=== PATIENT | female | born 1950 | race Caucasian/White ===

== ENCOUNTER 2022-08-28 12:18 | Emergency (ER) | payer OTHER, MEDICARE ==
[2022-08-28 13:30] LABS: #Lymphocytes 2.6 thou/uL (1.20-3.40); #Monocytes 1.2 thou/uL (0.11-0.59); #Neutrophils 6.6 thou/uL (1.40-6.50); %Basophils 0.3 % (0.0-1.0); %Eosinophils 0.3 % (0.0-10.0); %Lymphocytes 24.8 % (21.0-51.0); %Monocytes 11.4 % (0.0-10.0); %Neutrophils 63.3 % (42.0-75.0); Mean Corpuscular HGB CONC 32.4 g/dL (32.0-36.0); Mean Corpuscular Hemoglobin 30.6 pg (27.0-31.0); Mean Corpuscular Volume 94.5 fl (78.0-98.0); Mean Platelet Volume 8.8 fL (7.4-10.4); Platelet Count 264 thou/uL (130-400); RBC Distribution Width 12.4 % (11.5-14.5); Red Blood Cell (RBC) Count 4.91 mill/uL (4.20-5.40); White Blood Cell (WBC) Count 10.4 thou/uL (4.8-10.8)
[2022-08-28] MEDS ORDERED: FENTANYL 50 MCG/ML 1 ML VIAL ONE ×2 (14:05→16:39)
[2022-08-28] MEDS ORDERED: Ondansetron PF 4 MG/2 ML Vial ONE (15:38)
[2022-08-28 15:48] LABS: ALT (SGPT) 14 U/L (8-55); AST (SGOT) 22 U/L (5-34); Albumin 4.3 g/dL (3.4-4.8); Alkaline Phosphatase 80 U/L (40-110); Anion Gap 15 mmol/L (10-20); BUN (Urea Nitrogen) 9 mg/dL (9.8-20.1); Bilirubin, Total 0.7 mg/dL (0.2-1.2); Calc. Creatinine Clearance 0 mL/min (70-130); Calcium 9.7 mg/dL (7.8-10.44); Carbon Dioxide 24 mmol/L (23-31); Chloride 101 mmol/L (98-107); Estimated GFR 92; Glucose 122 mg/dL (83-110); Potassium 3.8 mmol/L (3.5-5.1); Protein, Total 7.3 g/dL (5.8-8.1); Sodium 136 mmol/L (136-145)
[2022-08-28] MEDS ORDERED: PROPOFOL 20 ML ONE (15:51)
[2022-08-28] MEDS ORDERED: Ketamine 50 MG/ML (10ML VIAL) ONE (15:51)
[2022-08-28] MEDS ORDERED: Boostrix 0.5 ML (Tdap) VIAL (>/=7 yrs of age) ONE (16:39)
[2022-08-28] MEDS ORDERED: CEFAZOLIN 2 GM VIAL ONE (16:39)
== END 2022-08-28 17:13 | disposition home or self-care (01) ==
LOC: ERS 12:18
DX: S53.125A Posterior dislocation of left ulnohumeral joint, initial encounter (principal); W01.0XXA Fall on same level from slipping, tripping and stumbling without subsequent striking against object, initial encounter
CPT/HCPCS: 71045; 73070; 80053; 85025; 90715; 93005; J3010; 24640; 36415; 96374; 96375; 99152; 99153; J2405; J2704

== ENCOUNTER 2023-07-12 09:48 | Outpatient (CLI) | payer MEDICARE | END 2023-07-12 09:49 | disposition home or self-care (01) | LOC: CT 09:48 | PROVIDERS: ATTEND Family Medicine | DX: E27.8 Other specified disorders of adrenal gland (principal) | CPT/HCPCS: 74170 ==